=== PATIENT | female | born 1970 ===

== ENCOUNTER 2025-07-02 09:40 | Outpatient (AMB) | payer OTHER, SELFPAY ==
--- OUTSIDE RECORDS SUMMARY | 2025-07-02 10:18 | XMS_ITS | Clinical Summary ---
Author Organization [facility] Address [address] [place] [address] Care Team Providers Care Optometrist Assistant Name Role Phone Unavailable Primary Care Provider Unavailabl e Social History Tobacco Use Types Packs/Day Years Used Date Smoking Tobacco: Never Assessed Comments Unknown Sex and Gender Information Value Date Recorded Sex Assigned at Not on file Legal Sex Female 10:32 PM EDT Gender Identity Not on file Sexual Orientation Not on file Plan of Treatment Health Maintenance Due Date Last Done Comments Hepatitis C Screening 1968 Pap Smear 1984 DTaP/Tdap/Td (1 - Tdap) 1986 Hep B (1 of 3 - 19+ 3-dose series) 1987 Mammogram/Breast Imaging 2008 Pneumococcal 50+ years (1 of 1 - PCV) 2018 Zoster (Shingrix) (1 of 2) 2018 COVID-19 Vaccine (1 - 2023-2 5 season) 2024 Influenza (#1) 2025 HPV Vaccine (No Doses Required) Completed Hep A Aged Out No longer eligi ble based on patient's age to complete this topic Hib Aged Out No longer eligi ble based on patient's age to complete this topic Meningococcal ACWY Aged Out No longer eligible based on patient's age to complete this topic Insurance WORKERS COMPENSATION
--- OUTSIDE RECORDS SUMMARY | 2025-07-02 10:18 | XMS_ITS | Encounter Summary ---
Author Organization [facility] Address [address] [place] [address] Encounters * Online digital evaluation and management service, for an established patient, 21+ minutes during the 7 days, 21+ minutes with Amrik Cadet at [facility] on 2025-02-22 54 y/o F s/p with l. sided rib injury, pain and a small pleural effusion. We evaluated Berna Lemos for Other Issues during this period from 2025-02-22 to 2025-03-01. A log history of our dialog is attached below. PHR was confirmed per below. 1. Unspecified injury of thorax, initial encounter (S29.9XXA) ACUTE CARE PLAN SOAP NOTE SUBJECTIVE: Patient presenting with: injury due to fall. 54F with PMH GERD, chronic venous insufficiency (mild), DJD of spine, and HTN who completed chest injury intake. 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 Not exactly sure what happened but knows rammed her lower back and is now bruised on the L hip and gluteal area as well as the L ribcage. Thinks directly hit the stairs with her L side, the railing is on the R side. Main concern currently is pain in the L ribcage. She is able to take a deep breath but it is painful. If tries to bend over to give her dog its bowl gets a sharp pain. Otherwise able to walk and perform her ADL's. No shortness of breath. She is not sure if needs to go to the ED or if it is ok to wait over the weekend. She has had bilateral elbow surgeries in the past year to repair torn lgaments and tendons and has follow-up with her surgeon on Mon. 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 ASSESSMENT & PLAN: Clinical picture indicative of this diagnosis: rib injury due to fall Differential includes: rib contusion vs fracture Workup to include: XR L ribcage Given that she is breathing normally and not in severe pain ok to treat supportively. Given degree of pain on ribcage will refer for XR rib films to r/o fracture as this will help with determining prognosis. Notes that is scheduled to fly to [place] for work on of next week (02/27) and wants to know ifok to fly. Advised that should have in-person assessment and imaging (see below) to help answer this question, but if rib fractures would be preferable to delay flying for at least 4 weeks (or per recommendation from her orthopedic surgeon). Plan: 1. Order X-ray L ribcage to r/o fracture, she prefers [facility] 2. Recommend in-person assessment as well, she is already scheduled with her orthopedic surgeon andwill discuss this even with him on 02/24 3. May use ibuprofen 600mg every 6h as needed for pain (confirms no allergy or other contraindication). Follow-up interval and reason/type: 3 days symptom check in/referral f/u 1 week - Red Flag label removed 02/22/25 @ 03:51p - Sowmya Zhao Rib Injury Rib xray from [facility] 02/26/2024 showed no consolidation; no pneumothorax. Mild L basilar linear atelectasis with probably L sided pleural effusion. Probably tiny calcified pulmonary granuloma over L upper lobe. No evidence of displaced L rib fracture: f/u CT can be done for further eval. Reported results to pt, recommended: 1. avoid air travel for 2 weeks from time of injury 2. consider f/u with repeat xray or CT 3. f/u based on pain set f/u check in for 2 days RECORD EXTRACTION: [facility] 02/25/2025 XR LEFT RIBS UNILATERAL W/CHEST 3VIEWS or MORE IMPRESSION: 1. Marker BB overlies the left lateral inferior thoracic and upper abdominal soft tissues 2. Mildleft basilar linear atelectasis with probable small left-sided pleural effusion. Probable vianey calcified pulmonary granuloma overlying the left upper lobe. 3. No evidence of acute displaced left rib fracture 4. Follow up CT the chest can be performed for further evaluation. EXTRACTED: Margarita Doyle RN 03/01/2025 1343 EST 2. Fall (on) (from) other stairs and steps, initial encounter (W10.8XXA) Written by Amrik Barnhart on 2025-02-22
--- OUTSIDE RECORDS SUMMARY | 2025-07-02 10:18 | XMS_ITS | Patient Health Record ---
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 Name Role Phone jacklyn ramsey Primary Care Provider Unavail able John Parrish Unavailable [phone] Koffi Madison Unavailable [phone] Yumiko Dhaliwal Unavailable [phone] Sunitha Paige Unavailable [phone] Allergies Allergen (clinical drug ingredient) Drug/Non Drug Allergy documented on EMR Reaction Allergy Type Onset Date Status Boone Unknown Drug Allergy Active Keflex Unknown Drug Allergy Active Silver Silver Unknown Allergy Active Results Component Value Reference Range Notes COPY RECEIVED FROM: Reviewed date:08/23/2024 10:37:51 AM Interpretation: Performing Lab: Notes/Report: FASTING: UNKNOWN COPY RECEIVED FROM: [address] [place] [address] COPY(IES) SENT TO: Reviewed date:08/23/2024 10:38:18 AM Interpretation: Performing Lab: Notes/Report: FASTING: UNKNOWN COPY(IES) SENT TO: [facility] [address] [place] [id number] TISSUE PATHOLOGY ([id number]) Reviewed date:08/23/2024 10:38:07 AM Interpretation: Performing Lab:NL1, [id number] [place], [place] [id number] Hunter Padilla M.D. Notes/Report: FASTING: UNKNOWN CLINICAL INFORMATION Epicond ylitis PATHOLOGIST Breanna Hurley M.D., Board Certified in Anatomic and Clinical Pathology (electronic signature) A SOURCE Elbow, right la teral: A GROSS DESCRIPTION The container is labeled with patient's name and no source is indicated. Specimen is received in 10% neutral buffered formalin and consists of multiple irregular fragments of lopez-white and red-brown soft tissue measuring 2.1 x 1.7 x 0.5 cm in aggregate. Specimen is submitted entirely in cassettes A1-A2. Gross exam(s) performed at: [facility] [address] [place] [id number] Crane Chaser: HUNTER PDAILLA MD A DIAGNOSIS -Bone, cartilage and fibroconnective tissue with degenerative changes. EMG- Nerve Conduction Study Bilateral UE Reviewed date:08/01/2024 03:01:02 PM Interpretation:07/31 dr naranjo. *dcw call with results Performing Lab: Notes/Report: 07/31 dr naranjo. *dcw call with results Reason For Referral Reason RIGHT LATERAL EPICON DYLAR DEBRIDEMENT WITH THE POSSIBILITY OF COLLATERAL LIGAMENT RECONSTRUCTION RELEASE OF THE POSTERIOR INTEROSSEOUS NERVE Diagnosis 1 Radial tunnel syndro me, right (G56.31) Diagnosis 2 Lateral epicondyliti s, right elbow (M77.11) Referral [facility] Referring Provider First Name John Referring Provider Last Name [facility] Referring Provider Speciality Orthopedic Surgery Referred Organization [facility] Referred Address [address] [place] [id number], Referred Provider Specialty Orthopedic S urgery Procedure 1 RECONSTRUCT ELBOW LA T LIGMNT (37402) Procedure 2 REPAIR ELBOW NICHOLE/ATT CH OPEN (37322) Procedure 3 REVISE ARM/LEG NERVE (94870) General Notes Ronna Garcia 10:31:55 AM >ANTIBIOTICS, HAND TRAY, 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, Referral Priority Routine Referral Appointment Date 2024 Medications Medication SIG (Take, Route, Frequency, Duration) Notes Start Date End Date Status HYDROcodone-Acetaminophen 5-325 MG Tablet Oral; Duration: 7 Days Not-Taking Ciclopirox 8 % Solution External; Durati on: 30 Days Active Cyclobenzaprine HCl 10 MG Tablet Oral; Duration: 30 Days PRN Active hydroCHLOROthiazide 25 MG Tablet Oral; Duration: 90 Days Active Albuterol Sulfate HFA 108 (9 0 Base) MCG/ACT Aerosol Solution INHALE 2 PUFFS EVERY 4 TO 6 HOURS NEEDED Inhalation; Duration: 30 Days Active LORazepam 1 MG Tablet Oral; Duration: 90 Days PRN Active Social History Tobacco Use: Social History Observation Description Date Details (start date - stop date) Never Smoker NA - NA Social History Drug/Alcohol: Social Info Question Answer Notes AUDIT-C (Standard) Did you have a drink containing alcohol in the past year? No Points 0 Interpretation Negative Tobacco Use: Social Info Question Answer Notes Tobacco Control (Standard) Tobacco use: Nonsmoker Problems Problem Type SNOMED Code ICD Code Onset Dates Problem Status W/U Status Risk Notes Problem Lateral epicondylitis (222180020) Lateral epicondylitis , left elbow (M77.12) Active confirmed Problem Lesion of radial nerve (074019499) Acute radial nerve palsy of right upper 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) Active confirmed Problem Lesion of radial nerve (594794673) Radial tunnel syndrome, right (G56.31) Active confirmed Vital Signs Heart Rate 70 /min 08/14/2024 Respiratory Rate 16 /min 08/14/2024 Blood pressure diastolic 68 mm Hg 08/14/2024 Height-cm 165.1 cm 06/02/2025 Weight-kg 64.41 kg 06/02/2025 Height 65 in 06/02/2025 Blood pressure systolic 124 mm Hg 08/14/2024 Weight 142 lbs 06/02/2025 BMI 23.63 kg/m2 06/02/2025 Procedures Procedure Date Ordered Date Performed Result Body Sit e *OCCUPATIONAL THERAPY ORDER 08/13/2024 08/13/2024 N/A Encounters Encounter Location Date Provider Diagnosis [facility] [address] [place] [address] 07/22/2024 John Wisch Lateral epicondylitis, left elbow M77.12 ; Lateral epicondylitis, right elbow M77.11 ; Complete tear of lateral collateral ligament of elbow, left, initial encounter S53.432A and Radial tunnel syndrome, right G56.31 [facility] [address] [place] [address] 08/05/2024 John Wischarmony Radial tunnel syndrome, right G56.31 and Lateral epicondylitis, right elbow M77.11 [facility] [address] [place] [address] 08/14/2024 Yanejason Los Lateral epicondylitis, left elbow M77.12 and Radial tunnel syndrome, right G56.[address] [place] [address] 08/30/2024 Sunitha Haydonniee Epicondylitis, lateral, right M77.11 and Acute radial nerve palsy of right upper extremity G56.[address] [place] [address] 09/30/2024 John Wisch Lateral epicondylitis, right elbow M77.11 and Radial tunnel syndrome, right G56.[address] [place] [address] 11/07/2024 John Wisch Lateral epicondylitis, right elbow M77.11 ; Radial tunnel syndrome, right G56.31 ; Lateral epicondylitis, left elbow M77.12 and Complete tear of lateral collateral ligament of elbow, left, initial encounter S53.432A [address] [place] [address] 12/16/2024 John Wisch Lateral epicondylitis, right elbow M77.11 ; Radial tunnel syndrome, right G56.31 and Impingement syndrome of right shoulder M75.[address] [place] [address] 01/27/2025 John Wisch Lateral epicondylitis, right elbow M77.11 ; Lateral epicondylitis, left elbow M77.12 ; Radial tunnel syndrome, right G56.31 ; Complete tear of lateral collateral ligament of elbow, left, initial encounter S53.432A ; Impingement syndrome of right shoulder M75.41 and Adhesive capsulitis of left shoulder M75.[address] [place] [address] 02/24/2025 John Wisch Lateral epicondylitis, right elbow M77.11 ; Impingement syndrome of right shoulder M75.41 and Adhesive capsulitis of left shoulder M75.[address] [place] [address] 06/02/2025 John Wisch Lateral epicondylitis, right elbow M77.11 ; Radial tunnel syndrome, right G56.31 ; Complete tear of lateral collateral ligament of elbow, left, initial encounter S53.432A and Lateral epicondylitis, left elbow M77.12 [facility] [address] [facility] [place] [address] 07/02/2024 John Pratt [facility] [address] [facility] [place] [address] 07/26/2024 [facility] [address] [facility] [place] [address] 07/29/2024 John Pratt [facility] [address] [facility] [place] [address] 08/01/2024 [facility] [address] [facility] [place] [address] 08/16/2024 Koffi Madison [facility] [address] [facility] [place] [address] 2024 John Parrish Assessments Encounter Date Diagnosis (ICD Code) Assessment Notes Treatment Notes Treatment Clinical Notes Section Notes 08/05/2024 Lateral epicondylitis, right elbow (ICD-10 - M77.11) I did review her nerve study and it was normal but 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 I called her and discussed that with her. Just sometimes it is a longer recovery if the nerve is positive. 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 I called her and discussed that with her. Just sometimes it is a longer recovery if the nerve is positive. So when I do a right lateral epicondylar debridement release the PIN and she is fully aware 08/14/2024 Lateral epicondylitis, left elbow (ICD-10 - M77.12) I reviewed a right lateral epicondylar debridement With possible LCL reconstruction, posterior interosseous nerve release with the patient. The natural history of the problem and treatment options were discussed at length. The potential risks, side effects and alternatives involving the treatment modalities were discussed and the patient appeared to understand these. The proposed surgical procedure was discussed at length including the actual procedure and the expectations of the outcome of the procedure. The potential risks, side effects and alternatives involving the surgical procedure were discussed and the patient appeared to understand these the length of the hospital/Surgery Center stay and the recovery period were also discussed the patient was given an opportunity to ask questions regarding the procedure, which were answered. The patient has elected to proceed at this time with the proposed procedure. Preoperative paperwork and instructions were given. The procedure was explained at length, including the risks, benefits, possible complications, and alternatives. Informed consent was reviewed and signed. The patient was advised of nothing by mouth status after midnight the day prior to the procedure and no antiplatelet medication prior to surgery if indicated. We will check with her pain management doctor regarding postop pain medication. There was instruction to follow up with us after surgery but call if any problem's arise prior. She will bring a sling with her to surgery This note was dictated using [employer] software, mistakes and substitutions may have occurred. 08/14/2024 Radial tunnel syndrome, right (ICD-10 - G56.31) 08/30/2024 Acute radial nerve palsy of right upper extremity (ICD-10 - G56.31) Patient is doing well status post right lateral epicondylar debridement with removal bone reattachment of the extensor mechanism and a release of the posterior interosseous nerve on 2024 08/30/2024 Epicondylitis, lateral, right (ICD-10 - M77.11) after physical examination today, overall the patient is doing well. I removed the sutures today in the office and placed Steri-Strips over the incision. I instructed that she can shower and get this wet, no soaking of the incision when she gets her splint made by therapy. In the meantime, I placed her into a posterior elbow splint with the Littler dressing which she can not get wet. When she gets her splint made by therapy, she can remove this for bathing and for hand hygiene. She will start occupational therapy as scheduled. Still no lifting with this hand. And she will follow up as scheduled with Dr. Parrish note, she was complaining of some left elbow pain today. She is tender over the right lateral epicondyle. I advised her to ice, elevate, take anti-inflammator ies I think that her left elbow has flared up due to the fact that she is using this more because she is not able to use her right arm. If she has any issues and this continues to bother her, she was instructed to call the office. Patient is doing well status post right lateral epicondylar debridement with removal bone reattachment of the extensor mechanism and a release of the posterior interosseous nerve on 2024 09/30/2024 Lateral epicondylitis, right elbow (ICD-10 - M77.11) she is here to [facility] for follow-up of her right side. I think we get rid of her brace. They can start aggressive therapy with strengthening. I will also work on the left side too because she had surgery on that side and she had an LCL reconstruction and she is obviously very weak. She is developing some Dupuytren's in the palm of the left side we are just going to watch. There is no way to prevent it we talked about it. She is still out of work at this point. This is not workman's comp. But there is no way that she can lift up to 50 lb right now on either of her arms for work as a [employer] start his 09/30/2024 Radial tunnel syndrome, right (ICD-10 - G56.31) she is here to y for follow-up of her right side. I think we get rid of her brace. They can start aggressive therapy with strengthening. I will also work on the left side too because she had surgery on that side and she had an LCL reconstruction and she is obviously very weak. She is developing some Dupuytren's in the palm of the left side we are just going to watch. There is no way to prevent it we talked about it. She is still out of work at this point. This is not workman's comp. But there is no way that she can lift up to 50 lb right now on either of her arms for work as a [employer] start his 11/07/2024 Lateral epicondylitis, right elbow (ICD-10 - M77.11) I think overall she is doing great both of her elbows. 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 Our goal is to get him back to full duty hopefully in 6-8 weeks. 07/22/2024 Lateral epicondylitis, right elbow (ICD-10 - M77.11) for completeness I am going to get a nerve study but I told her usually nerve study is normal but I am leaning towards doing a right lateral epicondylar debridement with the PIN release. The question is whether or not her lateral collateral ligament maybe an issue as the MRI showed there was a question but clinically she is not as symptomatic like she was not the left side but I would be prepared just in case I need to do something I will. We will set her up for surgery in a few weeks for the right side. She is out of work still. Therapy we will continue her left elbow and continue her left shoulder. I have my accredited legal secretary meet with her today. I also started to fill out form for FMLA /short-term disability 07/22/2024 Lateral epicondylitis, left elbow (ICD-10 - M77.12) for completeness I am going to get a nerve study but I told her usually nerve study is normal but I am leaning towards doing a right lateral epicondylar debridement with the PIN release. The question is whether or not her lateral collateral ligament maybe an issue as the MRI showed there was a question but clinically she is not as symptomatic like she was not the left side but I would be prepared just in case I need to do something I will. We will set her up for surgery in a few weeks for the right side. She is out of work still. Therapy we will continue her left elbow and continue her left shoulder. I have my accredited legal secretary meet with her today. I also started to fill out form for FMLA /short-term disability 11/07/2024 Radial tunnel syndrome, right (ICD-10 - G56.31) I think overall she is doing great both of her elbows. 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 Our goal is to get him back to full duty hopefully in 6-8 weeks. 12/16/2024 Lateral epicondylitis, right elbow (ICD-10 - M77.11) I think her elbo w is doing well. His shoulder on the right side is a little bit of an issue as well as the left side. 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 I do not think she has the endurance which would make sense because her elbows have been out of commission for so long that is going to take months for it to get back her strength. I will have therapy work on rotator cuff and biceps strengthening. I am going to keep her out of work at this point. She essentially needs work hardening /conditioning 12/16/2024 Radial tunnel syndrome, right (ICD-10 - G56.31) I think her elbo w is doing well. His shoulder on the right side is a little bit of an issue as well as the left side. 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 I do not think she has the endurance which would make sense because her elbows have been out of commission for so long that is going to take months for it to get back her strength. I will have therapy work on rotator cuff and biceps strengthening. I am going to keep her out of work at this point. She essentially needs work hardening /conditioning 01/27/2025 Lateral epicondylitis, right elbow (ICD-10 - M77.11) a right elbow is doing very well. It is her shoulders that are bothering her. She basically has bilateral shoulder impingement we decided to inject her right shoulder and left shoulder and we will have therapy work with her. 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 Obviously her shoulder has continued to be an issue work it up and I told her I would have her see . she will ice the shoulders. She will take anti-inflammatori es. 01/27/2025 Lateral epicondylitis, left elbow (ICD-10 - M77.12) a right elbow is doing very well. It is her shoulders that are bothering her. She basically has bilateral shoulder impingement we decided to inject her right shoulder and left shoulder and we will have therapy work with her. 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 Obviously her shoulder has continued to be an issue work it up and I told her I would have her see . she will ice the shoulders. She will take anti-inflammatori es. 02/24/2025 Impingement syndrome of right shoulder (ICD-10 - M75.41) the injections helped her shoulders. She is going to therapy. Her elbows are doing excellent. She is working but just had a fall coming back from a trip that happened at home she has a script for x-rays of her ribs and I told her we can not do those here. What she really should probably go to a place where they can at least treat her although there is not much we can do for broken ribs. She probably is going to have to skip her next trip for work that is up to her and whoever is treating her for her supposed fracture ribs. I will see her as needed. 02/24/2025 Lateral epicondylitis, right elbow (ICD-10 - M77.11) the injections helped her shoulders. She is going to therapy. Her elbows are doing excellent. She is working but just had a fall coming back from a trip that happened at home she has a script for x-rays of her ribs and I told her we can not do those here. What she really should probably go to a place where they can at least treat her although there is not much we can do for broken ribs. She probably is going to have to skip her next trip for work that is up to her and whoever is treating her for her supposed fracture ribs. I will see her as needed. 06/02/2025 Lateral epicondylitis, right elbow (ICD-10 - M77.11) I think she is doing well I think she is just nervous that she is going to go backwards with the work. 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 Nothing like she had before. I gave her a whole bunch of exercises. She will take an anti-inflammatory PRN. I also sent a text to Ashely who did her therapy that she may want to come in just for some refresher type treatment which is fine. I will give her a follow-up in 6-8 weeks but she can always cancel. 06/02/2025 Radial tunnel syndrome, right (ICD-10 - G56.31) I think she is doing well I think she is just nervous that she is going to go backwards with the work. 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 Nothing like she had before. I gave her a whole bunch of exercises. She will take an anti-inflammatory PRN. I also sent a text to Ashely who did her therapy that she may want to come in just for some refresher type treatment which is fine. I will give her a follow-up in 6-8 weeks but she can always cancel. 06/02/2025 Complete tear of lateral collateral ligament of elbow, left, initial encounter (ICD-10 - S53.432A) I think she is doing well I think she is just nervous that she is going to go backwards with the work. 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 Nothing like she had before. I gave her a whole bunch of exercises. She will take an anti-inflammatory PRN. I also sent a text to Ashely who did her therapy that she may want to come in just for some refresher type treatment which is fine. I will give her a follow-up in 6-8 weeks but she can always cancel. 02/24/2025 Adhesive capsulitis of left shoulder (ICD-10 - M75.02) the injections helped her shoulders. She is going to therapy. Her elbows are doing excellent. She is working but just had a fall coming back from a trip that happened at home she has a script for x-rays of her ribs and I told her we can not do those here. What she really should probably go to a place where they can at least treat her although there is not much we can do for broken ribs. She probably is going to have to skip her next trip for work that is up to her and whoever is treating her for her supposed fracture ribs. I will see her as needed. 01/27/2025 Radial tunnel syndrome, right (ICD-10 - G56.31) a right elbow is doing very well. It is her shoulders that are bothering her. She basically has bilateral shoulder impingement we decided to inject her right shoulder and left shoulder and we will have therapy work with her. 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 Obviously her shoulder has continued to be an issue work it up and I told her I would have her see . she will ice the shoulders. She will take anti-inflammatori es. 07/22/2024 Complete tear of lateral collateral ligament of elbow, left, initial encounter (ICD-10 - S53.432A) for completeness I am going to get a nerve study but I told her usually nerve study is normal but I am leaning towards doing a right lateral epicondylar debridement with the PIN release. The question is whether or not her lateral collateral ligament maybe an issue as the MRI showed there was a question but clinically she is not as symptomatic like she was not the left side but I would be prepared just in case I need to do something I will. We will set her up for surgery in a few weeks for the right side. She is out of work still. Therapy we will continue her left elbow and continue her left shoulder. I have my accredited legal secretary meet with her today. I also started to fill out form for FMLA /short-term disability 12/16/2024 Impingement syndrome of right shoulder (ICD-10 - M75.41) I think her elbo w is doing well. His shoulder on the right side is a little bit of an issue as well as the left side. 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 I do not think she has the endurance which would make sense because her elbows have been out of commission for so long that is going to take months for it to get back her strength. I will have therapy work on rotator cuff and biceps strengthening. I am going to keep her out of work at this point. She essentially needs work hardening /conditioning 11/07/2024 Lateral epicondylitis, left elbow (ICD-10 - M77.12) I think overall she is doing great both of her elbows. 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 Our goal is to get him back to full duty hopefully in 6-8 weeks. 11/07/2024 Complete tear of lateral collateral ligament of elbow, left, initial encounter (ICD-10 - S53.432A) I think overall she is doing great both of her elbows. 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 Our goal is to get him back to full duty hopefully in 6-8 weeks. 07/22/2024 Radial tunnel syndrome, right (ICD-10 - G56.31) for completeness I am going to get a nerve study but I told her usually nerve study is normal but I am leaning towards doing a right lateral epicondylar debridement with the PIN release. The question is whether or not her lateral collateral ligament maybe an issue as the MRI showed there was a question but clinically she is not as symptomatic like she was not the left side but I would be prepared just in case I need to do something I will. We will set her up for surgery in a few weeks for the right side. She is out of work still. Therapy we will continue her left elbow and continue her left shoulder. I have my accredited legal secretary meet with her today. I also started to fill out form for FMLA /short-term disability 01/27/2025 Complete tear of lateral collateral ligament of elbow, left, initial encounter (ICD-10 - S53.432A) a right elbow is doing very well. It is her shoulders that are bothering her. She basically has bilateral shoulder impingement we decided to inject her right shoulder and left shoulder and we will have therapy work with her. 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 Obviously her shoulder has continued to be an issue work it up and I told her I would have her see . she will ice the shoulders. She will take anti-inflammatori es. 06/02/2025 Lateral epicondylitis, left elbow (ICD-10 - M77.12) I think she is doing well I think she is just nervous that she is going to go backwards with the work. 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 Nothing like she had before. I gave her a whole bunch of exercises. She will take an anti-inflammatory PRN. I also sent a text to Ashely who did her therapy that she may want to come in just for some refresher type treatment which is fine. I will give her a follow-up in 6-8 weeks but she can always cancel. 01/27/2025 Impingement syndrome of right shoulder (ICD-10 - M75.41) a right elbow is doing very well. It is her shoulders that are bothering her. She basically has bilateral shoulder impingement we decided to inject her right shoulder and left shoulder and we will have therapy work with her. 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 Obviously her shoulder has continued to be an issue work it up and I told her I would have her see . she will ice the shoulders. She will take anti-inflammatori es. 01/27/2025 Adhesive capsulitis of left shoulder (ICD-10 - M75.02) a right elbow is doing very well. It is her shoulders that are bothering her. She basically has bilateral shoulder impingement we decided to inject her right shoulder and left shoulder and we will have therapy work with her. 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 Obviously her shoulder has continued to be an issue work it up and I told her I would have her see . she will ice the shoulders. She will take anti-inflammatori es. Plan Of Treatment Next Appt Details Provider Name:John antunez, 07/28/2025 12:00:00 PM, [address] , [place], [id number], Insurance Providers Payer Name Payer Address Payer Phone Subscriber Number Group Number Insured Name Patient Relationship to Insured Coverage Start Date Coverage End Date [facility] [address] [address] [place], [place] [phone] [id number] Berna Lemos Self - patient is the insured Medications Administered Medication Instructions Date of Administration Dosage Notes Kenalog-40 06/17/2024 1 mL Kenalog-40 01/27/2025 1 mL Medical (General) History Medical History History ICD Code hypertension hx of cancer anxiety patient denies taking ozempic or any oth er weight loss/diabetes meds patient denies asa/blood thinners Surgical History Surgery Date(Month/Year) cancer x2 septoplasty rhinoplasty Hospitalization History Reason Date(Month/Year) cancer
--- OUTSIDE RECORDS SUMMARY | 2025-07-02 10:18 | XMS_ITS | Clinical Summary ---
Author Organization [address] [facility] Address [address] [place] [address] Phone Care Team Providers Care Biological Technical Officer Name Role Phone Lorena Bocanegra MD Primary Care Provider [phone] Allergies Active Allergy Reactions Criticality Noted Date Comments Cephalexin 04/30/2017 Other Swelling High 11/02/2022 Cherries Silver Rash Low 07/18/2023 Medications cyclobenzaprine HCl (FLEXERIL ORAL) Take 10 mg by mouth as needed. Active esomeprazole magnesium (NexIUM 24HR) 20 mg tablet,delayed release (DR/EC) Take 20 mg by mouth daily. NO Substitution Active furosemide (LASIX) 20 mg tablet Take 20 mg by mouth daily. Active hydroCHLOROthia zide (HYDRODIURIL) 25 mg tablet Take 1 Tablet by mouth daily. Active HYDROcodone-joel taminophen (NORCO) 5-325 mg per tablet as needed. Activ e LORazepam (ATIVAN) 1 mg tablet Take 1 mg by mouth as needed. Active polyethylene glycol (Golytely) 236-22.74-6.74 -5.86 gram solution Take 4L by mouth once for one dose. May substitue any PEG. Starting at 6PM the night before your procedure drink 1 8oz glasses at your own pace until you complete half of the gallon. Finish 2nd half of the gallon 5 hours before your procedure. 4000 mL 5 Active bisacodyL (DULCOLAX) 5 mg EC tablet Take 2 tablets by mouth right before beginning bowel prep. See instructions provided by the office 2 tablet 5 Active Active Problems Problem Noted Date Diagnosed Date Rectal bleeding 01/09/2025 Gastroesophageal reflux disease with esophagitis 05/02/2017 Surgical History Surgery Date Site/Laterality Comments BREAST SURGERY PROCEDURE: [facility] UNLISTED PROCEDURE BREAST NASAL SEPTUM SURGERY PROCEDURE: [facility] REPAIR NASAL SEPTAL PERFORATIONS OTHER SURGICAL HISTORY PROCEDURE: EXTRACTION ERUPTED TOOTH/EXR OTHER SURGICAL HISTORY PROCEDURE: [facility] LIGATION OF FEMORAL VEIN COLONOSCOPY 08/2015 PROCEDURE: HISTORICAL COLONOSCOPY; COMMENT: negative UPPER GASTROINTESTINAL ENDOSCOPY 08/2015 PROCEDURE: [facility] UPPER GI ENDOSCOPY PERFORMED; COMMENT: negative UPPER GASTROINTESTINAL ENDOSCOPY 06/2013 PROCEDURE: [facility] UPPER GI ENDOSCOPY PERFORMED; COMMENT: GERD UPPER GASTROINTESTINAL ENDOSCOPY 12/20/2018 PROCEDURE: UPPER GI ENDOSCOPY/EXAM; COMMENT: GERD with esophagitis COLONOSCOPY 12/20/2018 PROCEDURE: HISTORICAL COLONOSCOPY; COMMENT: negative UPPER GASTROINTESTINAL ENDOSCOPY 06/03/2020 PROCEDURE: [facility] UPPER GI ENDOSCOPY PERFORMED; COMMENT: GERD ESOPHAGOGASTRODUODENOSCOPY 11/09/2022 PROCEDURE: [facility] EGD TRANSORAL BIOPSY SINGLE/MULTIPLE; COMMENT: normal, biopsy mild reactive changes and benign fundic polyps KNEE SURGERY Left ELBOW SURGERY Bilateral EYE SURGERY Right Medical History Medical History Date Comments GERD (gastroesophageal reflux disease) DX:GERD (gastroesophageal reflux disease) Cystosarcoma phyllodes of right breast DX:Cystosarcoma phyllodes of right breast Asthma DX:Asthma Social History Tobacco Use Types Packs/Day Years Used Date Smoking Tobacco: Never Smokeless Tobacco: Never Alcohol Use Standard Drinks/Week Comments Yes 0 (1 standard drink = 0.6 oz pur e alcohol) Interpersonal Safety Answer Date Record ed Physical Abuse 02/05/2025 Verbal Abuse 02/05/2025 Comments No Sex and Gender Information Value Date Recorded Sex Assigned at Female 02/04/2025 10:01 AM EDT Legal Sex Female 2:17 PM EST Gender Identity Female 02/04/2025 10:01 AM EDT Sexual Orientation Straight 02/05/2025 1: 43 PM EDT Obstetrics History Last Filed Vital Signs Vital Sign Reading Time Taken Comments Blood Pressure 116/64 02/05/2025 3:37 PM EDT Pulse 90 02/05/2025 3:37 PM EDT Temperature 37 C (98.6 F) 02/05/2025 3:17 PM EDT Respiratory Rate 16 02/05/2025 3:37 PM EDT Oxygen Saturation 100% 02/05/2025 3:37 PM EDT Inhaled Oxygen Concentration - - Weight 62.6 kg (138 lb) 01/09/2025 1:18 PM EST Height 165.1 cm (5' 5 ) 01/09/2025 1:18 PM EST Body Mass Index 22.96 01/09/2025 1:18 PM EST Plan of Treatment Health Maintenance Due Date Last Done Comments Breast Cancer Screening 1968 Zoster Vaccines (1 of 2) 1987 Cervical Cancer Screening: P ap Smear 1989 Pneumococcal Vaccine: 50+ Years (1 of 1 - PCV) 2018 COVID-19 Vaccine (3 - Pfizer risk series) 04/28/2021 03/31/2021, 03/11/2021 Cholesterol Screening (Lipid Panel) 10/16/2022 HIV Screening 10/16/2022 Hepatitis C Screening 10/16/2022 Social Influencers of Health Screening 10/16/2022 Depression Screening 11/06/2024 Hypertension/CHF/CAD Annual BMP Blood Test 01/11/2025 09/14/2018 Influenza Vaccine (#1) 2025 9, 08/18/2010 DTaP,Tdap,and Td Vaccines (2 - Tdap) 03/15/2028 03/15/2018 Colorectal Cancer Screening: Colonoscopy 02/05/2035 02/05/2025, 12/20/2018 Hepatitis B Vaccines Completed 03/14/2013, 11/14/2012, 09/14/2012 Hepatitis A Vaccines Aged Out 12/04/2019 No long er eligible based on patient's age to complete this topic MMR Vaccines Aged Out 01/07/2020, 12/04/2019 No longer eligible based on patient's age to complete this topic HIB Vaccines Aged Out No longer eligi ble based on patient's age to complete this topic HPV Vaccines Aged Out No longer eligi ble based on patient's age to complete this topic IPV Vaccines Aged Out No longer eligi ble based on patient's age to complete this topic Meningococcal ACWY Vaccine Aged Out N o longer eligible based on patient's age to complete this topic Meningococcal B Vaccine Aged Out No l onger eligible based on patient's age to complete this topic RSV Immunization Patients Under 20 months Aged Out No longer eligible b ased on patient's age to complete this topic Varicella Vaccines Aged Out No longer eligible based on patient's age to complete this topic Procedures Procedure Name Priority Date/Time Associated Diagnosis Comments COLONOSCOPY Routine 02/05/2025 3:16 PM EDT Gastroesophageal reflux disease with esophagitis without hemorrhage Rectal bleeding ANNUAL [facility] BLOOD TEST Routine 09/14/2018 from Last 3 Months or Most Recently Relevant to Health Maintenance Results * COLONOSCOPY Anesthesia - MAC; [facility] ENDOSCOPY (02/05/2025 3:16 PM EDT) Anatomical Region Laterality Modality Other 02/05/2025 2:45 PM EDT Impressions 02/05/2025 3:15 PM EDT - Internal hemorrhoids. - No specimens collected. Recommendation: - Repeat colonoscopy in 10 years for screening purposes. - Use fiber, for example Citrucel, Fibercon, Konsyl or Metamucil. Narrative 02/05/2025 3:15 PM EDT [facility] Patient Name: Berna Lemos Procedure Date: 02/05/2025 2:45 PM Date of : 1970 Age: 54 Gender: Female Note Status: Finalized Attending MD: Barry Larry MD, Procedure Date No Time: 02/05/2025 Procedure: Colonoscopy Indications: Hematochezia Providers: Barry Larry MD Referring MD: Barry Larry MD Medicines: Propofol per Anesthesia Complications: No immediate complications. Estimated Blood Loss: Estimated blood loss: none. Procedure: Pre-Anesthesia Assessment: - ASA Grade Assessment: II - A patient with mild systemic disease. After I obtained informed consent, the scope was passed under direct vision. Throughout the procedure, the patient's blood pressure, pulse, and oxygen saturations were monitored continuously.The Olympus Pediatric Colonoscope was introduced through the anus and advanced to the cecum, identified by appendiceal orifice and ileocecal valve. The Olympus Pediatric Colonoscope was introduced through the and advanced to. The colonoscopy was performed without difficulty. The patient tolerated the procedure well. The quality of the bowel preparation was adequate. Findings: The perianal and digital rectal examinations were normal. Internal hemorrhoids were found during retroflexion. The hemorrhoids were Grade I (internal hemorrhoids that do not prolapse). Procedure Code(s): --- Professional --- 68053, Colonoscopy, flexible; diagnostic, including collection of specimen(s) by brushing or washing, when performed (separate procedure) Diagnosis Code(s): --- Professional --- K64.0, First degree hemorrhoids K92.1, Melena (includes Hematochezia) CPT copyright 2020 [employer]. All rights reserved. The codes documented in this report are preliminary and upon information coder review may be revised to meet current compliance requirements. Barry Larry MD 02/05/2025 3:15:30 PM This report has been signed electronically.Barry Larry MD Number of Addenda: 0 Note Initiated On: 02/05/2025 2:45 PM Scope In: Scope Out: Endoscopy Department at [facility] - [address] [place] [id number] Procedure Note Barry Larry MD - 02/05/2025 [facility] Patient Name: Berna Lemos Procedure Date: 02/05/2025 2:45 PM Date of : 1970 Age: 54 Gender: Female Note Status: Finalized Attending MD: Barry Larry MD, Procedure Date No Time: 02/05/2025 Procedure: Colonoscopy Indications: Hematochezia Providers: Barry Larry MD Referring MD: Barry Larry MD Medicines: Propofol per Anesthesia Complications: No immediate complications. Estimated Blood Loss: Estimated blood loss: none. Procedure: Pre-Anesthesia Assessment: - ASA Grade Assessment: II - A patient with mild systemic disease. After I obtained informed consent, the scope was passed under direct vision. Throughout theprocedure, the patient's blood pressure, pulse, and oxygen saturations were monitored continuously.The Olympus Pediatric Colonoscope was introduced through theanus and advanced to the cecum, identified byappendiceal orifice and ileocecal valve. The Olympus Pediatric Colonoscope was introduced through the and advanced to. The colonoscopy was performed withoutdifficulty. The patient tolerated the procedure well. Thequality of the bowel preparation was adequate. Findings: The perianal and digital rectal examinations were normal. Internal hemorrhoids were found duringretroflexion. The hemorrhoids were Grade I (internal hemorrhoids that do not prolapse). Procedure Code(s): --- Professional --- 24693, Colonoscopy, flexible; diagnostic, including collection of specimen(s) by brushing or washing,when performed (separate procedure) Diagnosis Code(s): --- Professional --- K64.0, First degree hemorrhoids K92.1, Melena (includes Hematochezia) CPT copyright 2020 [employer]. All rights reserved. The codes documented in this report are preliminary and upon information coder reviewmay be revised to meet current compliance requirements. Barry Larry MD 02/05/2025 3:15:30 PM This report has been signed electronically.Barry Larry MD Number of Addenda: 0 Note Initiated On: 02/05/2025 2:45 PM Scope In: Scope Out: Endoscopy Department at [facility] - [address] [place] [id number] IMPRESSION: - Internal hemorrhoids. - No specimens collected. Recommendation: - Repeat colonoscopy in 10 years for screening purposes. - Use fiber, for example Citrucel, Fibercon, Konsylor Metamucil. Barry Larry MD GI~PROCEDURE ORDERABLES Final Re sult * Annual [facility] Blood Test (09/14/2018) Annual BMP Blood Test abstracted Historical Provider HEALTH MAINTENANCE Final Result from Last 3 Months or Most Recently Relevant to Health Maintenance [place] [id number] [facility] Care Teams Biological Technical Officer Relationship Specialty Start Date End Date Lorena Bocanegra MD [address] [facility] [address] [place] [phone] PCP - General Internal Medicine 01/09/25
--- OUTSIDE RECORDS SUMMARY | 2025-07-02 10:18 | XMS_ITS | Continuity of Care Document ---
Author Name [facility], [facility] Address [address] [place], [place] [id number] [place] [address] Organization Unknown Address [address] [place] [address] [place] [address] Medications No known medications Problems No known problems
--- OUTSIDE RECORDS SUMMARY | 2025-07-02 10:18 | XMS_ITS | Clinical Summary ---
Author Organization [facility] Address [address] [facility] [address] [place] [address] Phone Care Team Providers Care Police District Switchboard Operator Name Role Phone Lorena Bocanegra MD Primary Care Provide r Self-Referred, Patient Unavailable Unavailab le Allergies No known active allergies Active Problems Problem Noted Date Diagnosed Date Nasal obstruction 01/09/2013 Overview (12/26/2014): Nasal airway obstruction S/P rhinoplasty 01/09/2013 Overview (12/26/2014): S/P Rhinoplasty Deviated nasal septum 01/09/2013 Overview (12/26/2014): Deviated nasal septum Social History Tobacco Use Types Packs/Day Years Used Date Smoking Tobacco: Never Education Answer Date Recorded Are you interested in more education? Not on nirmala e 06/16/2025 Are you concerned about learning? Not on file 06/16/2025 No 06/16/2025 No 06/16/2025 Digital Access Answer Date Recorded No 06/16/2025 No 06/16/2025 Reliable internet access at home? Not on file 06/16/2025 Device with a working camera? Not on file Comments Unknown Sex and Gender Information Value Date Recorded Sex Assigned at Female 05/21/2025 3:23 PM EDT Legal Sex Female 6:49 PM EST Gender Identity Choose not to disclose 3:23 PM EDT Sexual Orientation Choose not to disclose 2024 3:34 PM EDT Last Filed Vital Signs Vital Sign Reading Time Taken Comments Blood Pressure 142/94 11/10/2014 4:00 PM EST Pulse 81 11/10/2014 4:00 PM EST Temperature - - Respiratory Rate - - Oxygen Saturation - - Inhaled Oxygen Concentration - - Weight 63.5 kg (140 lb) 11/10/2014 4:00 PM EST Height 165.1 cm (5' 5 ) 11/10/2014 4:00 PM EST Body Mass Index 23.3 11/10/2014 4:00 PM EST Plan of Treatment Upcoming Encounters Date Type Department Care Team (Late st Contact Info) Description 08/26/2025 2:30 PM EDT [facility] [place] [address] [facility], [address] [place] [address] Bailey Latif MD [address] [id number] [email or web address] Health Maintenance Due Date Last Done Comments Adult Td,Tdap Booster 1970 LIPID PANEL 1968 DEPRESSION SCREENING 1980 SMOKING Hx and SMOKELESS TOB ACCO SCREENING 1981 HEPATITIS C SCREENING 1986 HIV ONE-TIME SCREENING (18-6 5 YEARS) 1986 PAP SMEAR 1989 MAMMOGRAM 2008 COLOGUARD 2013 COLONOSCOPY 2013 COLORECTAL CANCER SCREENING 2013 FIT TEST 2013 FOBT 2013 SIGMOIDOSCOPY 2013 VIRTUAL COLONOSCOPY 2013 PNEUMOCOCCAL VACCINES (50+ y ears) (1 of 1 - PCV) 2018 ZOSTER VACCINES (1 of 2) 2018 COVID-19 VACCINE ( - 2023-2 5 season) 2024 INFLUENZA VACCINE (#1) 2025 HEPATITIS A VACCINES Aged Out No long er eligible based on patient's age to complete this topic HIB VACCINES Aged Out No longer eligi ble based on patient's age to complete this topic MENINGOCOCCAL VACCINES (ACWY) Aged Out No longer eligible based on patient's age to complete this topic MENINGOCOCCAL VACCINES (B) Aged Out N o longer eligible based on patient's age to complete this topic Medical Devices Not on file Insurance [place] [address] [place] [address] [place] [address] [place] [address] [place] [address] [place] [address] [place] [address] [place] [address] [place] [address] [place] [address] [place] [address] [place] [address] PPO Advance Directives For more information, please contact: [phone] (9AM - 5PM Patrizia/[facility], Monday-Monday) Documents on File Type Date Recorded Patient Tool Maker Bench Expl anation Advance Directive - Non Epic LMR 10/04/2013 12:00 AM Care Teams Police District Switchboard Operator Relationship Specialty Start Date End Date Lorena Bocanegra MD [address] [place], [place] [phone] PCP - General Internal Medicine 05/21/25 Self-Referred, Patient Referring Physician 05/21/25 Additional Source Comments The information contained in this document represents components of the legal health record. It is not the complete legal health record.[facility]
--- OUTSIDE RECORDS SUMMARY | 2025-07-02 10:18 | XMS_ITS | Clinical Summary ---
Author Organization [facility] Address [address] [place] [address] Care Team Providers Care Professor Of Environmental Studies Name Role Phone Unavailable Primary Care Provider Unavailabl e Social History Tobacco Use Types Packs/Day Years Used Date Smoking Tobacco: Never Assessed Comments Unknown Sex and Gender Information Value Date Recorded Sex Assigned at Not on file Legal Sex Female 12:42 PM EDT Gender Identity Not on file Sexual Orientation Not on file Plan of Treatment Health Maintenance Due Date Last Done Comments Hepatitis C Virus Screening 1968 HIV Screening 1981 DTaP/Tdap/Td Vaccines (1 - Tdap) 1987 Hepatitis B Vaccines (1 of 3 - 19+ 3-dose series) 08/06 Pneumococcal Vaccines 50+ (1 of 1 - PCV) 2018 Zoster (Shingles) Vaccine (1 of 2) 2018 COVID-19 Vaccine ( - 2023- season) 2024
== END 2025-07-02 09:45 | disposition home or self-care (01) ==
LOC: HO.HMGAL 09:40
PROVIDERS: PCP Internal Medicine; Visit Provider Registered Nurse Emergency
DX: J30.89 Other allergic rhinitis (principal)
CPT/HCPCS: 95117; 95165

== ENCOUNTER 2025-09-24 15:43 | Outpatient (AMB) | payer OTHER, SELFPAY ==
--- OUTSIDE RECORDS SUMMARY | 2025-09-25 04:18 | XMS_ITS | Clinical Summary ---
Author Organization [facility] Address [address] [place] [address] Phone Care Team Providers Care Shoe Clerk Name Role Phone Lorena Bocanegra MD Primary Care Provide r Self-Referred, Patient Unavailable Unavailab le Allergies No known active allergies Active Problems Problem Noted Date Diagnosed Date Nasal obstruction 01/09/2013 Overview (12/26/2014): Nasal airway obstruction S/P rhinoplasty 01/09/2013 Overview (12/26/2014): S/P Rhinoplasty Deviated nasal septum 01/09/2013 Overview (12/26/2014): Deviated nasal septum Encounters Date Type Department Care Team Description 08/21/2025 Orders Only [facility] [place] [address] [facility], 6th [place] [address] Akin Michael 07/03/2025 Ancillary Orders [facility]G OUTSIDE IM [address] [place] [address] Bailey Latif MD from Last 3 Months Social History Tobacco Use Types Packs/Day Years [...] Care Team (Late st Contact Info) Description 09/30/2025 10:00 AM EST Office Visit [facility] [place] [address] [place] [address], 6th [place] [address] Bailey Latif MD [address] [place] [address] [email or web address] Health Maintenance Due Date Last Done Comments Adult Td,Tdap Booster 1968 LIPID PANEL 1968 DEPRESSION SCREENING 1980 SMOKING Hx and SMOKELESS TOBACCO SCREENING 1981 HEPATITIS C SCREENING 1986 HIV ONE-TIME SCREENING (18-6 5 YEARS) 1986 PAP SMEAR 1989 MAMMOGRAM 2008 COLOGUARD 2013 COLONOSCOPY 2013 COLORECTAL CANCER SCREENING 2013 FIT TEST 2013 FOBT 2013 SIGMOIDOSCOPY 2013 VIRTUAL COLONOSCOPY 2013 PNEUMOCOCCAL VACCINES (50+ years) (1 of 1 - PCV) 2018 ZOSTER VACCINES (1 of 2) 2018 INFLUENZA VACCINE (#1) 2025 9, 08/18/2010 COVID-19 VACCINE (3 - 2024-2 6 season) 2025 03/31/2021, 03/11/2021 RSV VACCINE (1 - 1-dose 75+ series) 2043 HEPATITIS A VACCINES Aged Out No long er eligible based on patient's age to complete this topic HIB VACCINES Aged Out No longer eligi ble based on patient's age to complete this topic IPV VACCINES Aged Out No longer eligi ble based on patient's age to complete this topic MENINGOCOCCAL VACCINES (ACWY) Aged Out No longer eligible based on patient's age to complete this topic MENINGOCOCCAL VACCINES (B) Aged Out N o longer eligible based on patient's age to complete this topic Medical Devices Not on file Insurance [address] [place], [place] [address]O UNITED PPO UNITED PPO UNITED PPO UNITED PPO UNITED PPO UNITED PPO [address] [place], [place] [id number] Advance Directives For more information, please contact: [phone] (9AM - 5PM [facility], Monday-Monday) Documents on File Type Date Recorded Patient Print Journalist Expl anation Advance Directive - Non Epic LMR 10/04/2013 12:00 AM Care Teams Shoe Clerk Relationship Specialty Start Date End Date Lorena Bocanegra MD [address] [place] [id number] PCP - General Internal Medicine 05/21/25 Self-Referred, Patient Referring Physician 05/21/25 Additional Source Comments The information contained in this document represents components of the legal health record. It is not the complete legal health record.[facility]
--- OUTSIDE RECORDS SUMMARY | 2025-09-25 04:18 | XMS_ITS | Data Portability ---
Author Organization [facility], [address] Address [address] [place] [address] Care Team Providers Care Shift Superintendent Name Role Phone JAMIEANTONTRUPTI TOMAS Primary Care Provider Assessment No assessment recorded. Plan of Treatment Reminders Order Date Submit Date Provider Last Modified By Organization Details Last Modified Time Details Appointments None recorded. Lab None recorded. Referral None recorded. Procedures None recorded. Surgeries None recorded. Imaging None recorded. Medication Orders Bactrim DS 800 mg-160 mg tablet 024 024 [id number], [address] [place], [address], 4 12:09:40 Patient TargetsNo targets recorded. Patient InstructionsNo instructions recorded. Reason for Referral None Reported. Problems Name Problem SNOMED Code Status Onset Date Resolution Date Notes Provider Name and Address Organization Details Recorded Time Hypertensiv e disorder 58340139 Active Jacqueline roth PA - [facility] 4 11:47:53 Paronychia of toe of left foot 5024961037331 9100 Active 2023 Gustavo Carpenter NP [address] [place], [address] , [place] - [facility] 4 12:05:14 Problem Notes None recorded. Procedures Surgical History Date Name Laterality Status Provider Name and Address Organization Details Recorded Time procedure on upper arm completed Jacqueline Mendez PA - [facility] 06/07/2024 11:49:49 procedure on knee completed Jacqueline Mendez PA - [facility] 06/07/2024 11:50:26 procedure on vein completed Jacqueline Mendez PA - [facility] 06/07/2024 11:50:48 procedure on nose completed Jacqueline Mendez PA - [facility] 06/07/2024 11:51:01 Imaging Results None recorded. Procedure Notes None recorded. Medical Equipment None Reported. Allergies Allergen ID Allergen Name Allergen Category Reaction Reaction Severity Criticality Documentation Date Start Date Code Code System Note Provider Name and Address Organization Details Recorded Time 547859 keane allergeni c extract food,medi cation Not available Not available Not available 06/07/2024 11478 1 RxNorm Jacqueline roth, PA - [facility] 4 11:45:10 319882 Keflex medicatio n Not available Not available Not available 06/07/202416150 7 RxNorm Jacqueline roth, PA - [facility] 4 11:45:44 Medications Name Sig Start Date Stop Date Status Note LastModified by Organization Details LastModified Time cyclobenzapr ine 10 mg tablet TAKE 1/2-1 TAB ORALLY EVERY 24HRS NEEDED FOR MUSCLE SPASMS active Not Available Not Available No t Available hydrocodone 5 mg-acetamino phen 325 mg tablet Take 1 tablet every 6 hours by oral route. active PRN Not Available Not Available Not Available prednisone 20 mg tablet TAKE 1 TABLET BY MOUTH TWICE A DAY active Not Available Not Available No t Available Nexium 40 mg capsule,tina yed release Take 1 capsule every day by oral route. active Not Available Not Available No t Available sulfamethoxa zole 800 mg-trimethop rim 160 mg tablet TAKE 1 TABLET EVERY 12 HOURS BY ORAL ROUTE WITH MEAL(S) FOR 7 DAYS, FOR SKIN INFECTION. active Not Available Not Available N ot Available ciclopirox 8 % topical solution APPLY TO AFFECTED NAILS DAILY DIRECTED active Not Available Not Available Not Available benzonatate 100 mg capsule TAKE 1 CAPSULE BY MOUTH THREE TIMES A DAY NEEDED active Not Available Not Available No t Available hydrochlorot hiazide 25 mg tablet Take 1 tablet every day by oral route. active Not Available Not Available No t Available lorazepam 1 mg tablet TAKE 1 TABLET BY MOUTH EVERY DAY NEEDED FOR ANXIETY active Not Available Not Available No t Available methylpredni solone 4 mg tablets in a dose pack TAKE 6 TABLETS ON DAY 1 DIRECTED ON PACKAGE AND DECREASE BY 1 TAB EACH DAY FOR A TOTAL OF 6 DAYS active Not Available Not Available No t Available albuterol sulfate HFA 90 mcg/actuatio n aerosol inhaler INHALE 2 PUFFS EVERY 4 TO 6 HOURS NEEDED active Not Available Not Available No t Available oxycodone 5 mg tablet TAKE 1 TAB NEEDED EVERY 4-6 HOURS WHEN NECESSARY POSTOP PAIN, STOP HYDROCODONE WHILE ON THIS MED active Not Available Not Available No t Available Flexeril 5 mg tablet Take 1 tablet as needed by oral route. active Not Available Not Available Not Available hydrocodone 5 mg-acetamino phen 300 mg tablet TAKE 1 TABLET BY MOUTH TWICE A DAY NEEDED FOR PAIN PARTIAL FILL PER PATIENT REQUEST active Not Available Not Available No t Available Vitals Date Recorded Body height Body mass index (BMI) Body weight Oxygen saturation Oxygen saturation in Arterial blood by Pulse oximetry Pain severity - 0-10 verbal numeric rating [Score] - Reported Heart rate Respiratory rate Body temperature Systolic And Diastolic Provider Name and Address Organization Details Last Updated DateTime 165.1 cm 23.3 kg/m2 18643.9 3 g 97 % 97 % 5 88 /min 16 /min 98.2 [degF] 132/86 mm[Hg] Jacqueline RAMIREZ - [facility] 11:38:49 Social History Question Answer Notes LastModified by Bondsy Details LastModified Time Tobacco Smoking Status Never Smoker Jacqueline roth [place] - [facility] 06/07/2024 11:48:41 Have You Had A Flu Shot This Season? No [email or web address] Information not available 06/07/2024 If No, Would You Like A Flu Shot Today? No [email or web address] Information not available 06/07/2024 What Is Your Relationship Status? Single [email or web address] Information not available 06/07/2024 Have You Recently Traveled Abroad? No [email or web address] Information not available 06/07/2024 Sex: Unknown Functional Status Question Answer Note LastModified by Bondsy Details LastModified Time How many times per week do you consume alcohol? Less than 1 time per week [email or web address] Information not available 06/07/2024 Do you use any illicit or recreational drugs? No [email or web address] Information not available 06/07/2024 Do you or have you ever used any other forms of tobacco or nicotine? No [email or web address] Information not available 06/07/2024 What is your level of alcohol consumption? 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 Family History Relationship Description Onset Age of this Age Resolved Age Notes LastModified by Organization Details LastModified Time Father No current problems or disability [email or web address] Not available 12/2023 11:48:04 Mother No current problems or disability [email or web address] Not available 12/2023 11:48:04 Medical History No medical history recorded. Gynecological HistoryNo gynecological history recorded. Obstetrics History GPAL:G 0 P 0 0 0 0 Immunizations Vaccine Type Date Status Note Provider Nam e and Address Organization Details Recorded Time COVID-19, mRNA, LNP-S, PF, 30 mcg/0.3 mL dose 1 completed Jacqueline Mendez null, PA - [facility] 06/07/2024 11:39:30 COVID-19, mRNA, LNP-S, PF, 30 mcg/0.3 mL dose 1 completed Jacquelinejeff Mendez null, PA - [facility] 06/07/2024 11:39:30 Influenza, split virus, trivalent, preservative 0 completed Jacquelinejeff Mendez null, PA - [facility] 06/07/2024 11:39:30 Influenza, split virus, quadrivalent, PF 9 completed Jacqueline Mendez null, PA - [facility] 06/07/2024 11:39:30 Past Encounters Encounter ID Performer Location Encounter Start Date Encounter Closed Date Diagnosis/Indication Diagnosis SNOMED-CT Code Diagnosis ICD10 Code Diagnosis IMO Codes Diagnosis Note [id number] [address] [address] [address] 06/22/2020 18:23:30 06/22/2020 19:03:10 [id number] [address] [address] [address] 10/23/2020 13:07:25 10/23/2020 16:11:12 [id number] Gustavo Carpenter, [employer] [address] [address] 06/07/2024 11:18:15 06/07/2024 12:11:20 Paronychia of toe of left foot [id number] 0514979 L03.032 Cellulitis is a skin infection caused by bacteria, most often strep or staph. It often occurs after a break in the skin from a scrape, cut, bite, or puncture, or after a rash. Cellulitis may be treated without doing tests to find out what caused it. But your doctor may do tests, if needed, to look for a specific bacteria, like methicilli n-resistan t Staphyloco ccus aureus (MRSA). The doctor has checked you carefully, but problems can develop later. If you notice any problems or new symptoms, get medical treatment right away. How can you care for yourself at home? Take your antibiotic s as directed. Do not stop taking them just because you feel better. You need to take the full course of antibiotic s. Prop up the infected area on pillows to reduce pain and swelling. Try to keep the area above the level of your heart as often as you can. If your doctor told you how to care for your infection, follow your doctor's instructio ns. If you did not get instructio ns, follow this general advice: Wash the area with clean water 2 times a day. Don't use hydrogen peroxide or alcohol, which can slow healing. You may cover the area with a thin layer of petroleum jelly, such as Vaseline, and a non-stick bandage. Apply more petroleum jelly and replace the bandage as needed. Be safe with medicines. Take pain medicines exactly as directed. If the doctor gave you a prescripti on medicine for pain, take it as prescribed . If you are not taking a prescripti on pain medicine, ask your doctor if you can take an over-the-c ounter medicine. Follow-up with Filter [facility] as needed. Go to ER if symptoms worsen. Health Concerns Section Related Observation LastModified by Organization Detai ls LastModified Time None Recorded Concern Status LastModified by Organization Details LastModified Time None Recorded Advance Directives Directive None Recorded Payers Insurance Date Sequence Insurance Name Policy Number Policy Tapia Covered Member ID Tapia Member ID Guarantor Name 07/30/2024 1 [facility] [id number] Berna Cotnoir [id number] Berna Cotnoir 07/30/2024 1 [place] [id number] Berna Madrigal Cotnoir [id number] Berna Cotnoir Notes Date Note Type Note Provider Name and Address Organization Details Recorded Time 4 text/html ToesReported by PatientHPIFor associated symptoms, patient reportsswelling,redness, andwarmthbut reportsno weakness,no numbness,no tingling,no ecchymosis,no catching/locking,no popping/clicking,no buckling,no grinding,no instability,no drainage,no fever, andno chills. For source of patient information, patient reportsinformation obtained from patientandpatient arrived at urgent care ambulatory(53 year old female comes in with left big toe lateral border swelling and redness x 1 week. denies any issues with ingrown toe nails. no discharge or open area. denies any fever or fever with chills.). For location, patient reportsleft,anterior,medial , andlateral. For quality, patient reportsachingandworsening. For severity, patient reportsmoderateandpain level 7/10. For duration, patient reports1 weeks. For timing, patient reportsgradual. For context, patient reportsatraumatic. For alleviating factors, patient reportsrest,elevation, andnsaids. For aggravating factors, patient reportswalking,weightbearin g, andexercise. For previous surgery, patient reportsnone. For prior imaging, patient reportsnone. For previous injections, patient reportsnone. For previous pt, patient reportsnone. Gustavo Carpenter NP [address] [place], [address], [place] - [facility] 06/07/2024 12:10:13 OBGyn Episode No OBEpisode recorded.
--- OUTSIDE RECORDS SUMMARY | 2025-09-25 04:18 | XMS_ITS | Patient Health Record ---
Author Organization [facility] [place] [address] [place] [address] Care Team Providers Care Bacon De Rinder Name Role Phone jacklyn ramsey Primary Care Provider Unavail able John Parrish Unavailable [phone] Allergies Allergen (clinical drug ingredient) Drug/Non Drug Allergy documented on EMR Reaction Allergy Type Onset Date Status Boone Unknown Drug Allergy Active Keflex Unknown Drug Allergy Active Silver Silver Unknown Allergy Active Reason For Referral No Information Medications Medication SIG (Take, Route, Frequency, Duration) Notes Start Date End Date Status HYDROcodone-Acetaminophen 5-325 MG Tablet Oral; Duration: 7 Days Not-Taking Meloxicam 15 MG Tablet 1 tablet Orally Once a day; Duration: 30 days As needed 07/28/2025 Active Ciclopirox 8 % Solution External; Durati on: 30 Days Active Albuterol Sulfate HFA 108 (9 0 Base) MCG/ACT Aerosol Solution INHALE 2 PUFFS EVERY 4 TO 6 HOURS NEEDED Inhalation; Duration: 30 Days Active LORazepam 1 MG Tablet Oral; Duration: 90 Days PRN Active Cyclobenzaprine HCl 10 MG Tablet Oral; Duration: 30 Days PRN Active hydroCHLOROthiazide 25 MG Tablet Oral; Duration: 90 Days Active Social History Tobacco Use: Social History [...] W/U Status Risk Notes Problem Lateral epicondylitis (495868632) Lateral epicondylitis , left elbow (M77.12) Active confirmed Problem Lesion of radial nerve (050934007) Acute radial nerve palsy of right upper 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) Active confirmed Problem Lesion of radial nerve (191171570) Radial tunnel syndrome, right (G56.31) Active confirmed Vital Signs Height-cm 165.1 cm 07/28/2025 Weight-kg 64.41 kg 07/28/2025 Height 65 in 07/28/2025 Weight 142 lbs 07/28/2025 BMI 23.63 kg/m2 07/28/2025 Encounters Encounter Location Date Provider Diagnosis [address] [address] 09/30/2024 John Wisch Lateral epicondyliti s, right elbow M77.11 and Radial tunnel syndrome, right G56.[address] [address] 11/07/2024 John Wisch Lateral epicondyliti s, right elbow M77.11 ; Radial tunnel syndrome, right G56.31 ; Lateral epicondylitis, left elbow M77.12 and Complete tear of lateral collateral ligament of elbow, left, initial encounter S53.432A [address] [address] 12/16/2024 John Wisch Lateral epicondyliti s, right elbow M77.11 ; Radial tunnel syndrome, right G56.31 and Impingement syndrome of right shoulder M75.[address] [address] 01/27/2025 John Wisch Lateral epicondyliti s, right elbow M77.11 ; Lateral epicondylitis, left elbow M77.12 ; Radial tunnel syndrome, right G56.31 ; Complete tear of lateral collateral ligament of elbow, left, initial encounter S53.432A ; Impingement syndrome of right shoulder M75.41 and Adhesive capsulitis of left shoulder M75.[address] [address] 02/24/2025 John Wisch Lateral epicondyliti s, right elbow M77.11 ; Impingement syndrome of right shoulder M75.41 and Adhesive capsulitis of left shoulder M75.[address] [address] 06/02/2025 John Parrish Lateral epicondyliti s, right elbow M77.11 ; Radial tunnel syndrome, right G56.31 ; Complete tear of lateral collateral ligament of elbow, left, initial encounter S53.432A and Lateral epicondylitis, left elbow M77.12 [facility] [address] [facility] [place] [address] 07/28/2025 John Pratt Lateral epicondyliti s, right elbow M77.11 ; Lateral epicondylitis, left elbow M77.12 ; Radial tunnel syndrome, right G56.31 and Complete tear of lateral collateral ligament of elbow, left, initial encounter S53.432A [address] [place] [address] 07/28/2025 John Parrish Assessments Encounter Date Diagnosis (ICD Code) Assessment Notes Treatment Notes Treatment Clinical Notes Section Notes 01/27/2025 Lateral epicondylitis, right elbow (ICD-10 - [...] the shoulders. She will take anti-inflammatori es. 07/28/2025 Lateral epicondylitis, right elbow (ICD-10 - M77.11) she is status post a right lateral epicondylar debridement and a left lateral epicondylar debridement the LCL reconstruction. Overall I think she is doing great. I am going to call in some meloxicam for her. 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 She asked about switching to meloxicam I told her that that is fine just do not mix it with Motrin products. She was nervous about side effects but he has had all those medications have side effects so she takes it every day for 3 months then you would get blood work that is not something she is planning on doing. I will see her as needed 07/28/2025 Lateral epicondylitis, left elbow (ICD-10 - M77.12) she is status post a right lateral epicondylar debridement and a left lateral epicondylar debridement the LCL reconstruction. Overall I think she is doing great. I am going to call in some meloxicam for her. 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 She asked about switching to meloxicam I told her that that is fine just do not mix it with Motrin products. She was nervous about side effects but he has had all those medications have side effects so she takes it every day for 3 months then you would get blood work that is not something she is planning on doing. I will see her as needed 06/02/2025 Lateral epicondylitis, right elbow (ICD-10 - [...] 6-8 weeks but she can always cancel. 12/16/2024 Lateral epicondylitis, right elbow (ICD-10 - [...] needs work hardening /conditioning 11/07/2024 Lateral epicondylitis, right elbow (ICD-10 - M77.11) I think overall she is doing great both of her elbows. 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 Our goal is to get him back to full duty hopefully in 6-8 weeks. 02/24/2025 Impingement syndrome of right shoulder (ICD-10 [...] ribs. I will see her as needed. 11/07/2024 Radial tunnel syndrome, right (ICD-10 - G56.31) I think overall she is doing great both of her elbows. 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 Our goal is to get him back to full duty hopefully in 6-8 weeks. 09/30/2024 Lateral epicondylitis, right elbow (ICD-10 - M77.11) she is here toda y for follow-up of her right side. [...] of her arms for work as a [employer] start his 09/30/2024 Radial tunnel syndrome, right (ICD-10 - G56.31) she is here toda y for follow-up of her right side. [...] of her arms for work as a [employer] start his 12/16/2024 Impingement syndrome of right shoulder (ICD-10 [...] to full duty hopefully in 6-8 weeks. 06/02/2025 Complete tear of lateral collateral ligament [...] ribs. I will see her as needed. 07/28/2025 Radial tunnel syndrome, right (ICD-10 - G56.31) she is status post a right lateral epicondylar debridement and a left lateral epicondylar debridement the LCL reconstruction. Overall I think she is doing great. I am going to call in some meloxicam for her. She has a big testing for the [employer] on Monday. She asked about switching to meloxicam I told her that that is fine just do not mix it with Motrin products. She was nervous about side effects but he has had all those medications have side effects so she takes it every day for 3 months then you would get blood work that is not something she is planning on doing. I will see her as needed 01/27/2025 Radial tunnel syndrome, right (ICD-10 - [...] shoulders. She will take anti-inflammatori es. 01/27/2025 Complete tear of lateral collateral ligament [...] the shoulders. She will take anti-inflammatori es. 07/28/2025 Complete tear of lateral collateral ligament of elbow, left, initial encounter (ICD-10 - S53.432A) she is status post a right lateral epicondylar debridement and a left lateral epicondylar debridement the LCL reconstruction. Overall I think she is doing great. I am going to call in some meloxicam for her. 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 She asked about switching to meloxicam I told her that that is fine just do not mix it with Motrin products. She was nervous about side effects but he has had all those medications have side effects so she takes it every day for 3 months then you would get blood work that is not something she is planning on doing. I will see her as needed 06/02/2025 Lateral epicondylitis, left elbow (ICD-10 - [...] 6-8 weeks but she can always cancel. 11/07/2024 Complete tear of lateral collateral ligament of elbow, left, initial encounter (ICD-10 - S53.432A) I think overall she is doing great both of her elbows. 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 Our goal is to get him back to full duty hopefully in 6-8 weeks. 01/27/2025 Impingement syndrome of right shoulder (ICD-10 [...] will take anti-inflammatori es. Plan Of Treatment No Information Insurance Providers Payer Name Payer Address Payer Phone Subscriber Number Group Number Insured Name Patient Relationship to Insured Coverage Start Date Coverage End Date [facility] [address] [address] [place], [place] [id number] Berna Lemos Self - patient is the [...]
--- OUTSIDE RECORDS SUMMARY | 2025-09-25 04:18 | XMS_ITS | Encounter Summary ---
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 Advised that should have in-person assessment and imaging (see below) to help answer this question, but if rib fractures would be preferable to delay flying for at least 4 weeks (or per recommendation from her orthopedic surgeon). Plan: 1. Order X-ray L ribcage to r/o fracture, she prefers [facility] 2. Recommend in-person assessment as [...]
--- OUTSIDE RECORDS SUMMARY | 2025-09-25 04:18 | XMS_ITS | Continuity of Care Document ---
Author Name [facility], [facility] Address [address] [place], [place] [id number] [place] [address] Organization Unknown Address [address] [place] [address] [address] [place] [address] Medications No known medications Problems No known problems
--- OUTSIDE RECORDS SUMMARY | 2025-09-25 04:18 | XMS_ITS | Encounter Summary ---
Author Organization [facility] Address [address] [place] [address] Phone Care Team Providers Care Human Resources Records Clerk Name Role Phone Lorena Bocanegra MD Primary Care Provide r Self-Referred, Patient Unavailable Unavailab le Encounter Details Date Type Department Care Team (Late st Contact Info) Description 08/21/2025 Orders Only [facility], [facility] [place] [address] [place] [address] [address] [place] [address] [email or web address] Social History Tobacco Use Types Packs/Day Years [...] not to disclose 2024 3:34 PM EDT documented as of this encounter Plan of Treatment Upcoming Encounters Date Type Department Care Team (Late st Contact Info) Description 09/30/2025 10:00 AM EST Office Visit [facility], [facility] [place] [address] [place] [address], [address] [place] [address] Bailey Latif MD [address] [place] [id number] [email or web address] documented as of this encounter Visit Diagnoses Not on filedocumented in this encounter Care Teams Human Resources Records Clerk Relationship Specialty Start Date End Date Lorena Bocanegra MD [address] [place] [id number] PCP - General Internal Medicine 05/21/25 Self-Referred, Patient Referring Physician 05/21/25 documented as of this encounter Additional Source Comments The information contained in this document represents components of the legal health record. It is not the complete legal health record.[facility]
--- OUTSIDE RECORDS SUMMARY | 2025-09-25 04:18 | XMS_ITS | Clinical Summary ---
Author Organization [facility] Address [address] [place] [address] Care Team Providers Care Substance Abuse Nurse Name Role Phone Unavailable Primary Care Provider [...] Vaccine (1 of 2) 2018 COVID-19 Vaccine (1 - season) 2025 RSV Vaccine 50 years and old er and Patients (1 - 1-dose 75+ series) 2043
--- OUTSIDE RECORDS SUMMARY | 2025-09-25 04:18 | XMS_ITS | Clinical Summary ---
Author Organization [facility] Address [address] [place] [address] Care Team Providers Care Ditch Inspector Name Role Phone Unavailable Primary Care Provider [...] of 2) 2018 COVID-19 Vaccine (1 - 2024-2 6 season) 2025 Influenza (#1) 2025 RSV (1 - 1-dose 75+ series) 2043 HPV Vaccine (No Doses Required) Completed Hep A Aged Out No longer eligi ble based on patient's age to complete this topic Hib Aged Out No longer eligi ble based on patient's age to complete this topic Meningococcal ACWY Aged Out No longer eligible based on patient's age to complete this topic Insurance WORKERS COMPENSATION
== END 2025-09-24 15:44 | disposition home or self-care (01) ==
LOC: HO.HMGAL 15:43
PROVIDERS: PCP Internal Medicine; Visit Provider Registered Nurse Emergency
DX: J30.89 Other allergic rhinitis (principal)
CPT/HCPCS: 95117; 95165